=== PATIENT | male | born 1975 | race Two or more races ===

== ENCOUNTER 2018-02-10 15:10 | Emergency (ER) | payer SELFPAY ==
[~2018-02-10] VITALS: Ht 160 cm; Wt 72.1 kg
[2018-02-10 15:16] VITALS: BP 140/75
== END 2018-02-10 17:22 | disposition home or self-care (01) ==
LOC: EDBD 15:13 → ER 15:13
DX: M25.512 Pain in left shoulder (principal)
CPT/HCPCS: 73030